=== PATIENT | female | born 1985 | race Caucasian/White ===

== ENCOUNTER 2023-03-06 08:05 | Emergency (ER) | payer BC, OTHER ==
[~2023-03-06] VITALS: Ht 160 cm; Wt 86.0 kg
[2023-03-06 08:50] VITALS: BP 129/70
== END 2023-03-06 09:44 | disposition home or self-care (01) ==
LOC: ER 08:05
DX: S83.92XA Sprain of unspecified site of left knee, initial encounter (principal); W18.39XA Other fall on same level, initial encounter; Y93.23 Activity, snow (alpine) (downhill) skiing, snowboarding, sledding, tobogganing and snow tubing; Y92.89 Other specified places as the place of occurrence of the external cause; Y99.8 Other external cause status
CPT/HCPCS: 73562